=== PATIENT | female | born 1950 | race Asian ===

== ENCOUNTER → 2020-07-29 10:55 | Outpatient (CLI) | payer MEDICARE, OTHER, SELFPAY ==
--- NOTE | 2020-07-29 | DI.MG.S_ITS ---
BILATERAL DIGITAL SCREENING MAMMOGRAM 3D/2D WITH CAD: 07/29/2020 CLINICAL: Routine screening. Comparison is made to exams dated: 01/22/2019 mammogram, 01/17/2018 mammogram, and 08/09/2016 mammogram - outside location. The tissue of both breasts is heterogeneously dense. This may lower the sensitivity of mammography. Current study was also evaluated with a Computer Aided Detection (CAD) system. There is a possible oval equal density asymmetry in the left axillary tail. This is more prominent. No other significant masses, calcifications, or other findings are seen in either breast. IMPRESSION: INCOMPLETE: NEEDS ADDITIONAL IMAGING EVALUATION The possible oval equal density asymmetry is indeterminate. Additional views with possible ultrasound are recommended. This exam was interpreted at Station ID: [id number]. NOTE: For mammograms, a report in lay terms will be sent to the patient. Approximately 15% of breast malignancies will not be visualized mammographically. In the management of a palpable breast mass, a negative mammogram must not discourage biopsy of a clinically suspicious lesion. Electronically Signed By: Kelly morgan/:07/29/2020 12:23:39 letter sent: Additional Imaging Needed ACR BI-RADS Category 0: Incomplete 3340F
== END ==
PROVIDERS: Family Provider Physician Assistant Medical; PCP Internal Medicine; Referring Provider Internal Medicine; Visit Provider Internal Medicine
DX: Z12.31 Encounter for screening mammogram for malignant neoplasm of breast (principal)
CPT/HCPCS: 77063; 77067

== ENCOUNTER → 2020-09-09 09:19 | Outpatient (CLI) | payer MEDICARE, OTHER, SELFPAY ==
--- NOTE | 2020-09-09 | DI.MG.S_ITS ---
UNILATERAL LEFT DIGITAL DIAGNOSTIC MAMMOGRAM 3D/2D WITH ADDITIONAL VIEWS: 09/09/2020 CLINICAL: Additional evaluation requested from prior study. Comparison is made to exams dated: 07/29/2020 mammogram - [facility], 01/22/2019 mammogram, and 01/17/2018 mammogram - outside location. The tissue of left breast is heterogeneously dense. This may lower the sensitivity of mammography. There possible asymmetry in the left axillary tail is not seen in additional views. No other significant masses or calcifications are seen in the breast. IMPRESSION: BENIGN There is no mammographic evidence of malignancy. A 1 year screening mammogram is recommended. This exam was interpreted at Station ID: [id number]. NOTE: For mammograms, a report in lay terms will be sent to the patient. Approximately 15% of breast malignancies will not be visualized mammographically. In the management of a palpable breast mass, a negative mammogram must not discourage biopsy of a clinically suspicious lesion. Electronically Signed By: Yoselin Dorman M.D. lk/:09/09/2020 09:43:06 letter sent: Normal Exam ACR BI-RADS Category 2: Benign Finding(s) 3342F
== END ==
PROVIDERS: Family Provider Physician Assistant Medical; PCP Internal Medicine; Referring Provider Internal Medicine; Visit Provider Internal Medicine
DX: R92.8 Other abnormal and inconclusive findings on diagnostic imaging of breast (principal)
CPT/HCPCS: 77065; G0279

== ENCOUNTER → 2024-02-01 11:24 | Outpatient (CLI) | payer MEDICARE, OTHER, SELFPAY ==
--- NOTE | 2024-02-01 11:28 | DI.MRI.S_ITS ---
BREAST MRI OF BOTH BREASTS: 02/01/2024 CLINICAL: Left breast Cancer. Comparison is made to exams dated: 01/16/2024 ultrasound biopsy, 01/16/2024 mammogram, 12/28/2023 ultrasound, 12/28/2023 mammogram, and 10/10/2022 mammogram - [facility]. PROCEDURE: MR BREAST BI WO/W CON INDICATIONS: breast cancer TECHNIQUE: The patient was placed prone in a dedicated breast imaging coil. Precontrast axial STIR and 3D FLASH without fat saturation sequences were obtained. Both before and after bolus injection of contrast, sequential 1-minute axial 3D FLASH with fat saturation sequences for 3 time points, with subtraction images and maximum intensity projections (MIP's) generated. Delayed sagittal FLASH images with fat saturation were also obtained. Computer-aided detection, including computer algorithm analysis of MRI image data for lesion detection and characterization, pharmacokinetic analysis, with further physician review for interpretation, was performed. FINDINGS: Image quality: Diagnostic. The breasts are heterogeneously dense. There is minimal background parenchymal enhancement. Right breast: No suspicious mass, non-mass enhancement, or focus. Left breast: In the left upper outer quadrant posterior depth, there is a spiculated mass corresponding to biopsy-proven malignancy, with clip in place, measuring 3 x 1.4 x 2.8 cm (, ). This is in close proximity, but does not invade the pectoralis muscle. Kinetic analysis is mix, predominantly with progressive pattern, with plateau and washout pattern noted in smaller areas. In the left upper outer quadrant anterior depth, there is a focal region of non mass enhancement versus irregular mass measuring 0.4 x 1 x 1.1 cm (, ). Kinetic analysis shows areas of washout. Miscellaneous: Within the field of view, there are no pathologically enlarged lymph nodes by size criteria. The partially visualized upper abdomen and anterior mediastinum appear unremarkable IMPRESSION: KNOWN BIOPSY PROVEN MALIGNANCY Biopsy-proven malignancy in the left breast in the upper outer quadrant posterior depth. Allowing for modality differences, size correlates with sonographic findings. No pathologic lymph nodes identified in the field of view by size criteria. In the left upper outer quadrant anterior depth, focal region of non mass enhancement versus irregular mass with suspicious kinetics analysis. A second-look ultrasound could be performed if clinically indicated. Sampling could also be pursued if necessary. BIRADS 6 This exam was interpreted at Station ID: [id number]. Electronically Signed By: Jose D Giang M.D. lc/:02/01/2024 13:26:55 ACR BI-RADS Category 6: Known biopsy proven malignancy 3346F
== END ==
PROVIDERS: Family Provider Physician Assistant Medical; PCP Nurse Practitioner Family; Referring Provider Physician Assistant; Visit Provider Physician Assistant
DX: C50.412 Malignant neoplasm of upper-outer quadrant of left female breast (principal); R92.333 Mammographic heterogeneous density, bilateral breasts
CPT/HCPCS: 77049; A9579